=== PATIENT | male | born 1980 | race Hispanic/Latino ===

== ENCOUNTER 2017-02-22 12:42 | Emergency (ER) | payer OTHER ==
[~2017-02-22] VITALS: Ht 182.9 cm; Wt 99.8 kg
[2017-02-22 14:34] VITALS: BP 158/88
--- NOTE | 2017-02-22 15:32 | ED GENERAL ADULT ---
History of Present Illness General Chief Complaint: Laceration Procedure Stated Complaint: HIT BY BRAISING WHEEL, LAC TO CHIN Source: patient Exam Limitations: language barrier Vital Signs & Intake/Output Vital Signs & Intake/Output Vital Signs Date Time Temp Pulse Resp B/P B/P Pulse O2 O2 Flow FiO2 Mean Ox Delivery Rate 02/22 1435 Room Air 02/22 1434 97.2 78 17 158/88 98 Room Air 02/22 1257 97.9 75 16 160/87 97 Room Air Allergies Coded Allergies: NO KNOWN ALLERGIES (02/22/17) Reconcile Medications No Known Home Medications Triage Note: 37 Y/O MALE PRESENTS WITH APPROX 1 INCH LAC UNDER CHIN; CUT WITH METAL GRINDING WHEEL. LAST TETANUS ? 7 YEARS AGO PER PT. 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 yes HPI: 29-year-old otherwise healthy male presenting with Chin lack from electric metal saw that occurred about 10:00 this morning. Denies numbness or paresthesias. Unsure of last tetanus. Past History Travel History Traveled to [place] past 21 day No Medical History Any Pertinent Medical History? see below for history Neurological: NONE EENT: NONE Cardiovascular: NONE Respiratory: NONE Gastrointestinal: NONE Hepatic: NONE Renal: NONE Musculoskeletal: NONE Psychiatric: NONE Endocrine: NONE Blood Disorders: NONE Cancer(s): NONE CHEMISTRY INSTRUCTOR/Reproductive: NONE Surgical History Surgical History: non-contributory Psychosocial History What is your primary language Jordanian Tobacco Use: Never used Family History Hx Contributory? No Review of Systems Review of Systems Constitutional: Reports: no symptoms. Respiratory: Reports: no symptoms. Cardiovascular: Reports: no symptoms. Skin: Reports: see HPI. Physical Exam Physical Exam General Appearance: well developed/nourished, no apparent distress Head: atraumatic Respiratory: normal breath sounds, lungs clear Cardiovascular: regular rate/rhythm Skin: 2-3 cm lack to chin extending into subcutaneous tissue, no visualized foreign body, mild amount of active bleeding from wound, tenderness to palpation along the edges, normal sensation Core Measures ACS in differential dx? No CVA/TIA Diagnosis: No Severe Sepsis Present: No Septic Shock Present: No Progress Differential Diagnoses I considered the following diagnoses in my evaluation of the patient: [ Laceration versus mandible fracture versus nerve injury] Plan of Care: Wound repaired with 4 sutures of 5-0 nylon, good skin approximation. Tetanus was updated today. Initial ED EKG: none Departure Departure Disposition: HOME OR SELF CARE Condition: Stable Clinical Impression Primary Impression: Chin laceration Referrals: JEFFERSON DON,NELLA Cobian (PCP/Family) Additional Instructions: Keep the wound clean and dry. The wound should be covered while at work, and can be uncovered in the evening while at home. Follow up in 5 days for suture removal. Return to the ED sooner for any normal worsening symptoms including fevers, purulent drainage. Departure Forms: Customer Survey General Discharge Information Prescriptions: Current Visit Scripts No Known Home Medications Procedures Laceration/Wound Repair Laceration/Wound Repair: Wound Location: face (chin) Wound Explored: clean, no foreign body removed Irrigated w/ Saline (ccs): 20 Betadine Prep? Yes Anesthesia: 1% lidocaine, lidocaine w/ epi Volume Anesthetic (ccs): 5 Wound Repaired With: sutures Suture Size/Type: 5:0, nylon Number of Sutures: 4 Layer Closure? No Date of Last Tetanus: 02/22/17 Critical Care Note Critical Care Note Critical Care Time: non-applicable
== END 2017-02-22 15:49 ==
LOC: ERH 12:42
DX: S01.81XA Laceration without foreign body of other part of head, initial encounter (principal); W27.0XXA Contact with workbench tool, initial encounter; Y92.9 Unspecified place or not applicable; Y93.9 Activity, unspecified
CPT/HCPCS: 90471; 90714

== ENCOUNTER 2017-03-02 05:15 | Emergency (ER) | payer OTHER ==
[~2017-03-02] VITALS: Ht 175.3 cm; Wt 77.1 kg
[2017-03-02 05:24] VITALS: BP 132/75
--- NOTE | 2017-03-02 05:35 | ED ANIMAL BITE/WOUND CHECK ---
History of Present Illness General Chief Complaint: General Adult Stated Complaint: SUTURE REMOVAL Source: patient Exam Limitations: no limitations Vital Signs & Intake/Output Vital Signs & Intake/Output Vital Signs Date Time Temp Pulse Resp B/P B/P Pulse O2 O2 Flow FiO2 Mean Ox Delivery Rate 03/02 0524 97.2 75 18 132/75 98 Room Air Allergies Coded Allergies: NO KNOWN ALLERGIES (02/22/17) Reconcile Medications No Known Home Medications Triage Note: PT TO ED FOR SUTURE REMOVAL. SUTURES TO LEFT SIDE OF CHIN PLACED 7 DAYS AGO. NO S/S OF INFECTION. DR KAYE IN TO EVAL PT ON PT ARRIVAL TO ROOM Triage Nurses Notes Reviewed? yes HPI: Patient presents for evaluation of suture removal. Patient states he cut his chin 7 days ago. Patient denies any issues with the wound. Patient states 4 sutures were placed. Past History Travel History Traveled to [facility] past 21 day No Medical History Any Pertinent Medical History? see below for history Neurological: NONE EENT: NONE Cardiovascular: NONE Respiratory: NONE Gastrointestinal: NONE Hepatic: NONE Renal: NONE Musculoskeletal: NONE Psychiatric: NONE Endocrine: NONE Blood Disorders: NONE Cancer(s): NONE FOOD SERVER/Reproductive: NONE Tetanus Vaccine: 02/22/17 Surgical History Surgical History: non-contributory Psychosocial History What is your primary language Malawian Tobacco Use: Never used Family History Hx Contributory? No Review of Systems Review of Systems Constitutional: Reports: no symptoms. EENTM: Reports: no symptoms. Respiratory: Reports: no symptoms. Cardiovascular: Reports: no symptoms. GI: Reports: no symptoms. Genitourinary: Reports: no symptoms. Musculoskeletal: Reports: no symptoms. Skin: Reports: see HPI. Neurological/Psychological: Reports: no symptoms. Hematologic/Endocrine: Reports: no symptoms. Immunologic/Allergic: Reports: no symptoms. All Other Systems: Reviewed and Negative Physical Exam Physical Exam General Appearance: see below Head: atraumatic Eyes: Bilateral: normal appearance. Ears, Nose, Throat: normal ENT inspection Neck: supple Respiratory: no respiratory distress Extremities: normal range of motion Neurologic/Psych: awake, alert, normal gait, normal mood/affect Skin: warm/dry, sutured wound of the chin, healing well Progress Differential Diagnosis: abscess, cellulitis, wound dehiscence Plan of Care: Wound care Comments: Procedure note: 4 sutures removed without difficulty. Departure Departure Disposition: HOME OR SELF CARE Condition: Stable Clinical Impression Primary Impression: Visit for suture removal Referrals: JEFFERSON DON,NELLA Cobian (PCP/Family) Additional Instructions: Return if any concerns or sudden worsening. Departure Forms: Customer Survey General Discharge Information Prescriptions: Current Visit Scripts No Known Home Medications
== END 2017-03-02 05:39 ==
LOC: ERH 05:15
DX: S01.81XA Laceration without foreign body of other part of head, initial encounter (principal); X58.XXXA Exposure to other specified factors, initial encounter; Y92.9 Unspecified place or not applicable; Y93.9 Activity, unspecified
CPT/HCPCS: 99281